=== PATIENT | male | born 2005 | race Two or more races ===

== ENCOUNTER → 2024-12-06 | Emergency (ER) | payer OTHER ==
[~2024-12-06] VITALS: Ht 177.8 cm; Wt 81.6 kg
[~2024-12-06] MED LIST: TETANUS & DIPHTHERIA TOX,ADULT 0.5 ML VIAL IM ONE
== END | disposition home or self-care (01) ==
LOC: ER 11:56
DX: S09.8XXA Other specified injuries of head, initial encounter (principal); S60.519A Abrasion of unspecified hand, initial encounter; X58.XXXA Exposure to other specified factors, initial encounter; Y93.74 Activity, frisbee; Y92.89 Other specified places as the place of occurrence of the external cause; Y99.8 Other external cause status
CPT/HCPCS: 70450; 73130; 90471; 90714; J1670